=== PATIENT | male | born 1980 | race Caucasian/White ===

== ENCOUNTER 2020-04-03 13:56 | Emergency (ER) | payer OTHER ==
--- NOTE | 2020-04-03 14:48 | TELE ---
HPI Do you have fever,cough or shortness of breath?: No - General Reason For Visit: COVID 19 TEST History Source: Patient Exam Limitations: No Limitations - History of Present Illness 04/03/20 14:45 39-year-old male history of hypertension, diabetes requesting cover testing. Patient denies cough, fever, chills, chest pain, shortness, abdominal pain, body aches or any other symptoms. Patient lives in [place] will be moving next week to [place]. Will be moving out of [place] in 2 days and staying at a friend's house in [facility]. His friend is requesting him to get a Covid test before staying in his home. ROS: as above PE: Speaking full sentences Unable to obtain physical exam given this is a telemedicine visit Discharge Diagnosis at time of Disposition: Counseled about COVID-19 virus infection, COVID-19 ruled out by laboratory testing - Referrals - Patient Instructions - Discharge Disposition: HOME Condition at time of Disposition: Stable
== END 2020-04-03 19:00 | disposition home or self-care (01) ==
LOC: JVIRT 13:56
DX: Z03.818 Encounter for observation for suspected exposure to other biological agents ruled out (principal)
CPT/HCPCS: Q3014-GT; U0003